=== PATIENT | female | born 1970 | race Caucasian/White ===

== ENCOUNTER 2024-04-14 09:52 | Emergency (ER) | payer OTHER, SELFPAY ==
[2024-04-14 09:54] VITALS: BP 115/71
--- NOTE | 2024-04-14 10:52 | ED.GENMED ---
History of Present Illness
General
Chief Complaint: Musculo-Skeletal Complaint
Source: patient
Exam Limitations: none
Time Seen by Provider: 04/14/24 10:43
History of Present Illness
History of Present Illness:
See MDM
Past History
Past History
ED Past Medical History: None
ED Past Surgical History: Gynecological
Social History
Tobacco: Non-smoker
Alcohol: None
Phy Exam
Physical Exam
Physical Exam:
See MDM
Course
Orders/Labs/Results
Orders:
Orders
04/14/24 09:54
CR Wrist - Right Min 3 Views Urgent
Comment:
Reason For Exam: Fall on outstretched hand
04/14/24 10:50
Ondansetron Orally Disint [Zofran Odt (Orally Disintegrating)] 4 mg PO NOW STA
Oxycodone/Acetaminophen [Percocet 5/325] 1 tablet PO NOW STA
Vital Signs
Initial and Last Documented VS:
Initial Vital Signs
Temp Pulse Resp BP Pulse Ox
98.1 F 76 16 115/71 100
04/14/24 09:54 04/14/24 09:54 04/14/24 09:54 04/14/24 09:54 04/14/24 09:54
Last Documented Vital Signs
Temp Pulse Resp BP Pulse Ox
98.1 F 76 16 115/71 100
04/14/24 09:54 04/14/24 09:54 04/14/24 09:54 04/14/24 09:54 04/14/24 09:54
MDM/Problems Addressed
Differential Diagnosis Includes:
HPI and MDM Narrative:
54-year-old female presenting with right wrist injury. Patient slipped on the ice prior to arrival and landed on her right wrist. She is left-hand dominant. She denies numbness or tingling. She does have decreased range of motion and muscle
strength secondary to pain. X-ray consistent with comminuted distal radial fracture without significant displacement or intra-articular involvement. Will place in splint and discussed follow-up with hand
Physical exam
General: Well appearing and non-toxic
HEENT: protecting airway
Neck: appears supple
CV: No evidence of cyanosis
Resp: No accessory muscle use
Abd: Non-distended
Extremities: Swelling and tenderness to distal right radius. Radial pulse intact. Distal sensation and cap refill intact. Decreased range of motion to distal right hand secondary to pain
Neuro: alert
Psych: Normal affect
Skin: Intact
Problems Addressed including Acute and Chronic Conditions affecting care:
1. Right wrist fracture
Acuity: acute
Prognosis: stable
Details: Will place in splint and discussed follow-up with hand
Differential Diagnosis (but not limited to): Wrist pain, wrist fracture
Testing considered: CT head but she denies head trauma
Drug therapy (if applicable): OTC meds, please see d/c instruction regarding Rx drugs
Amount and/or Complexity of Data Reviewed
Clinical info obtained from: Patient
External data reviewed: N/A
Labs I independently reviewed (but not limited to): N/A
Radiology: X-ray independently reviewed: Distal radius wrist fracture
Pulse Ox: not hypoxic
EKG independently reviewed: N/A
Embosser Operator: N/A
Critical Care: N/A
Risk of Complication:
Social Determinants of health: Good social support
Discussed with other providers: N/A
Escalation of Care includes Admit/Obs: After being observed in the Emergency Department, pt stable for discharge.
Occasional wrong word or 'sound a like' substitutions may have occurred due to the inherent limitations of voice recognition software. Read the chart carefully and recognize, using context, where substitutions have occurred.
*Critical Care Note
Total Time (30-74mins, 75-104mins- exclusive of procedures): Not Applicable
ED Attending Note
-
Portions of this chart may have been created with voice recognition software.� Occasional wrong word or��sound alike� substitutions may have occurred due to the inherent limitations of voice recognition software.
Discharge Plan
Departure
Patient Disposition: Home (Routine Discharge)
Date of Disposition: 04/14/24
Time of Disposition: 10:54
Patient with high blood pressure during this ER visit?: No
Discharge Problem:
Closed fracture of distal end of right radius
Instructions: Wrist Fracture (DC)
Prescriptions:
New
ondansetron 4 mg Tablet,Disintegrating
4 mg PO BIDPRN PRN (Reason: nausea/vomiting) Qty: 14 0RF
oxycodone 5 mg tablet
5 mg PO Q8H PRN (Reason: Pain) Qty: 14 0RF
No Action
cyclobenzaprine 10 mg tablet
10 mg PO TID PRN (Reason: muscle spasm) Qty: 14 0RF
Referrals:
Theo Govea MD [Active] -
Activity Restrictions/Additional Instructions:
Please return for any worsening symptoms.
You may return at any time if you have further concerns.
Please follow up with the orthopedist at the first available appointment, preferably this week. When you call them, please let them know that you were seen in the emergency department and have a wrist fracture.
You were given a prescription for narcotics. If you require this pain medicine, please take a daily [id number] stool softener to avoid constipation.
Thank you for choosing [facility].
Discharge Date and Time
Print Language: BHUTANESE
[2024-04-14] MEDS: ZOFRAN ODT (ORALLY DISINTEGRATING) 4 MG PO (11:22)
[2024-04-14] MEDS: PERCOCET 5/325 1 TABLET PO (11:22)
[2024-04-14 11:24] VITALS: BP 108/73
== END 2024-04-14 11:40 | disposition home or self-care (01) ==
LOC: EMR 09:52
PROVIDERS: EMERGENCY PHYSICIAN Student in an Organized Health Care Education/Training Program; FAMILY PHYSICIAN Family Medicine
DX: S52.591A Other fractures of lower end of right radius, initial encounter for closed fracture (principal); W19.XXXA Unspecified fall, initial encounter
CPT/HCPCS: 99283; 29125; 73110